=== PATIENT | male | born 1960 | race Caucasian/White ===

== ENCOUNTER → 2020-06-17 | Day surgery (SDC) | payer OTHER ==
[~2020-06-17] MED LIST: ASPIRIN325 PO; CARDURA2 MG PO; CARVEDILOL25 MG PO; DIFLUCAN100 MG PO; NORCO5 PO; NORVASC10 MG PO
--- NOTE | ~2020-06-17 | OP ---
[facility] [address] [place] [address] OPERATIVE REPORT Name: ANNA MONTGOMERY Room: [facility].#: [id number] Admission: 06/17/20 Attend Phys: Des Knox Discharge: Date of : 64 Report #: [id number] THIS REPORT FOR: cc: Martha Clark Mohammad K. DO Patterson, Jonathan D. MD ~ DOC #: [id number] Des Knox MD DATE OF SURGERY: 06/17/2020 PREOPERATIVE DIAGNOSIS: Incarcerated umbilical hernia. POSTOPERATIVE DIAGNOSIS: Incarcerated umbilical hernia. PROCEDURE: Laparoscopic repair of incarcerated umbilical hernia with mesh. SURGEON: Des Knox MD ANESTHESIA: General. ESTIMATED BLOOD LOSS: Minimal. COMPLICATIONS: None. DESCRIPTION OF PROCEDURE: After informed consent was obtained, the patient was brought to the operating room and placed supine. SCDs were placed and working. Preoperative antibiotics were administered, general anesthesia was induced. The abdomen was prepped and draped in the usual sterile fashion. A 5 mm incision was made in the left upper quadrant. A 5 mm trocar was placed under direct vision. Pneumoperitoneum was established. A left-sided 8 mm trocar and a right-sided 5 mm trocar was placed. He had incarcerated omentum in the umbilical hernia. This was all reduced. The defect measured approximately 1 cm. I therefore inserted an 11 cm [facility] mesh. It was brought up to the abdominal wall and tacked with approximately 25 absorbable tacks. The hernia was covered widely. The ports were removed under direct vision. The skin was closed with 4-0 Monocryl. Incisions were sealed with Dermabond. COMPLICATIONS: None. DISPOSITION: The patient was taken to recovery in satisfactory condition. Des Knox MD [facility] [address] OPERATIVE REPORT Name: ANNA MONTGOMERY Room: [facility]#: [id number] Admission: 06/17/20 Attend Phys: Des Knox Discharge: Date of : 64 Report #: [id number] By: [id number] Knox MD /nt
[2020-06-17 13:11] LABS: HEMATOCRIT 45.3 % (42.0-52.0); HEMOGLOBIN 15.1 gm/dL (14.0-18.0); MCH 30.5 pg (26.0-34.0); MCHC 33.2 g/dL (28.0-37.0); MCV 91.8 fL (80.0-100.0); MPV 9.4 fl. (7.2-11.1); RBC 4.94 mil/uL (4.50-6.00); WBC 6.5 thou/uL (4.0-11.0)
[2020-06-17 13:20] LABS: CALCIUM 9.2 mg/dL (8.5-10.1); CREATININE 0.5 mg/dL (0.6-1.3); POTASSIUM 3.8 mmol/L (3.5-5.1)
--- NOTE | 2020-06-17 13:59 | EKG ---
[place] [address] ELECTROCARDIOGRAM REPORT Name: ANNA MONTGOMERY Room: [facility]#: [id number] Admission: 06/17/20 Attend Phys: Des Velasquez Discharge: Date of : 64 Date of Service: 06/17/20 1240 Report #: [id number] THIS REPORT FOR: //name// [facility] Test Date: 2020-06-17 Test Time: 12:40:15 Pat Name: ANNA MONTGOMERY Department: Room: Gender: Maintenance Supervisor Electrical: : 1960 Requested By: Des Knox Order Number: [id number] Michael MD: Mehul Amor Measurements Intervals [place] Rate: 63 P: -44 SC: 202 QRS: -41 QRSD: 103 T: 22 QT: 407 QTc: 417 Interpretive Statements Sinus rhythm Borderline prolonged SC interval Inferior infarct, old No previous ECG available for comparison Electronically Signed On 06-17-2020 13:59:10 CDT by Mehul Amor [email or web address] <ELECTRONICALLY SIGNED> By: Mehul Amor MD, [facility] 06/17/20 1359 1240 1240 Mehul Amor MD, [facility] /EPI
== END | disposition home or self-care (01) ==
LOC: M.SUR 11:14
PROVIDERS: ATTEND Surgery
DX: K42.0 Umbilical hernia with obstruction, without gangrene (principal); Z20.822 Contact with and (suspected) exposure to COVID-19; Z79.899 Other long term (current) drug therapy